=== PATIENT | male | born 1985 | race Two or more races ===

== ENCOUNTER 2016-12-23 16:24 | Emergency (ER) | payer SELFPAY ==
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
[~2016-12-23 16:24] MED LIST: NO MEDICATIONS
== END 2016-12-23 17:09 | disposition home or self-care (01) ==
LOC: SED 16:24
DX: S13.4XXA Sprain of ligaments of cervical spine, initial encounter (principal); V43.52XA Car driver injured in collision with other type car in traffic accident, initial encounter; Y92.410 Unspecified street and highway as the place of occurrence of the external cause
CPT/HCPCS: 70450; 71010; 72125; 99284